=== PATIENT | male | born 1945 | race Caucasian/White ===

== ENCOUNTER 2018-05-26 06:08 | Day surgery (SDC) | payer MEDICARE ==
[2018-05-25 11:37] VITALS: BP 149/85
[2018-05-26] VITALS (17 sets, daily range): BP systolic 117–149; BP diastolic 60–74
[~2018-05-26] VITALS: Ht 182.9 cm; Wt 81.4 kg
[~2018-05-26 06:08] MED LIST: CEFAZOLIN SODIUM 1 GM VIAL IVP SCH
[2018-05-26] MEDS ORDERED: PROPOFOL 10 MG/ML 20ML VIAL IV ONE (06:49)
[2018-05-26] MEDS ORDERED: LIDOCAINE PF 2% 5ML ABBOJECT ONE (06:49)
[2018-05-26] MEDS ORDERED: FENTANYL CITRATE PF 50 MCG/1 ML 2ML VIAL ONE (06:49)
[2018-05-26] MEDS ORDERED: LACTATED RINGERS 1000ML 1,000 ML IV ONE (07:11)
[2018-05-26] MEDS ORDERED: GLYCOPYRROLATE 1 MG/5 ML SYRINGE ONE (07:47)
[2018-05-26] MEDS ORDERED: KETOROLAC TROMETHAMINE 30MG/ML ONE (08:12)
== END 2018-05-26 10:00 | disposition home or self-care (01) ==
LOC: DAH 06:08
DX: M65.841 Other synovitis and tenosynovitis, right hand (principal); G56.01 Carpal tunnel syndrome, right upper limb; I11.9 Hypertensive heart disease without heart failure; E78.00 Pure hypercholesterolemia, unspecified; M19.90 Unspecified osteoarthritis, unspecified site; Z98.890 Other specified postprocedural states; Z79.899 Other long term (current) drug therapy
CPT/HCPCS: 26160; 64721; 88304; 88305; A4218; A4606; A4649; A6223; J0690; J1885; J2001; J2704; J3010; J3490; J7120